=== PATIENT | male | born 1995 | race African-American/Black ===

== ENCOUNTER 2020-05-09 14:55 | Emergency (ER) | payer MEDICAID, OTHER ==
[~2020-05-09] VITALS: Ht 185.4 cm; Wt 130.0 kg
[2020-05-09] MEDS ORDERED: IBUPROFEN 600MG TABLET PO ONE (15:45)
[2020-05-09 16:02] VITALS: BP 138/97
== END 2020-05-09 17:26 | disposition home or self-care (01) ==
LOC: ER 14:55
DX: M54.2 Cervicalgia (principal); M54.89 Other dorsalgia; V43.52XA Car driver injured in collision with other type car in traffic accident, initial encounter; Y93.89 Activity, other specified; Y92.488 Other paved roadways as the place of occurrence of the external cause
CPT/HCPCS: 99282

== ENCOUNTER 2022-07-07 07:22 | Emergency (ER) | payer MEDICAID, OTHER ==
[~2022-07-07] VITALS: Ht 185.4 cm; Wt 118.0 kg
[2022-07-07] MEDS ORDERED: DIPH180L13 PO (09:08)
[2022-07-07] MEDS ORDERED: ACETAMINOPHEN 325MG TABLET PO SCH (09:15)
[2022-07-07] MEDS ORDERED: KETOROLAC 30MG/ML VIAL IM ONE (09:15)
[2022-07-07 09:32] VITALS: BP 138/79
== END 2022-07-07 09:47 | disposition home or self-care (01) ==
LOC: ER 07:22
DX: J06.9 Acute upper respiratory infection, unspecified (principal); M54.2 Cervicalgia; H57.10 Ocular pain, unspecified eye; R03.0 Elevated blood-pressure reading, without diagnosis of hypertension
CPT/HCPCS: 96372; 99283; J1885